=== PATIENT | male | born 1995 | race Caucasian/White ===

== ENCOUNTER 2021-12-05 18:25 | Emergency (ER) | payer SELFPAY ==
[~2021-12-05] VITALS: Ht 172.7 cm; Wt 65.0 kg
[2021-12-06 00:30] VITALS: BP 131/92
== END 2021-12-06 00:45 | disposition home or self-care (01) ==
LOC: ER 18:25
DX: F10.129 Alcohol abuse with intoxication, unspecified (principal); I45.4 Nonspecific intraventricular block; Y90.9 Presence of alcohol in blood, level not specified; I95.9 Hypotension, unspecified
CPT/HCPCS: 36415; 80320; 82962; 93005; 99284; G0480